=== PATIENT | female | born 2000 | race Caucasian/White ===

== ENCOUNTER 2019-12-21 09:12 | Inpatient (IN) | payer MEDICAID ==
[~2019-12-21] VITALS: Ht 165.1 cm; Wt 96.4 kg
[2019-12-21] MEDS ORDERED: PRENAVITE1 TAB PO (20:58)
[2019-12-21] MEDS ORDERED: FERROUS GLUCON324 MG PO (20:58)
[2019-12-21 21:08] LABS: HEMATOCRIT 35.5 % (36.0-48.0); HEMOGLOBIN 11.3 g/dL (12-16); MCHC 31.8 g/dL (31.0-37.0); MCV 88.1 fL (80.0-100.0); RBC 4.03 10x6/uL (4.00-5.40); RDW 14.1 % (11.5-14.5); WBC 13.3 10x3/uL (4.8-10.8)
[2019-12-21 21:21] LABS: UDS - AMPHET NEGATIVE QUAL (NEGATIVE); UDS - BARB NEGATIVE QUAL (NEGATIVE); UDS - BENZO NEGATIVE QUAL (NEGATIVE); UDS - COCAINE NEGATIVE QUAL (NEGATIVE); UDS - OPIATE NEGATIVE QUAL (NEGATIVE); UDS - PCP NEGATIVE QUAL (NEGATIVE); UDS - THC POSITIVE QUAL (NEGATIVE)
[2019-12-21 21:34] VITALS: BP 127/64; Ht 165.1 cm; Wt 96.4 kg
--- NOTE | 2019-12-22 23:50 | NUR ---
REPORT CALLED BY FLORIN BURNHAM
--- NOTE | 2019-12-22 23:58 | NUR ---
RECEIVED PT TO ROOM 1221. PT DELIVERED A LITTLE GIRL AT 2032. SHE AMBULATED TO 1221 FROM L&D. SHE HAS HER SO WITH HER. SHE HAS NKDA. SHE HAS A LEFT FOREARM SL. SHE HAS A RIGHT MEDIAL LATERAL EPISIOTOMY. HER FUNDUS IS FIRM 2 BELOW. SHE HAS SM TO MOD BLEEDING.
--- NOTE | 2019-12-23 00:20 | NUR ---
PT OUT OF BED TO VOID.
--- NOTE | 2019-12-23 02:00 | NUR ---
PT TRYING TO REST. PT HAD PAIN RATED AN 8 EARLIER AND PAIN MED GIVEN.
[2019-12-23 02:08] VITALS: BP 109/66
--- NOTE | 2019-12-23 04:00 | NUR ---
PT AND SO SLEEPING. NO C/O NO NEEDS
--- NOTE | 2019-12-23 05:04 | NUR ---
PT UP TO VOID. NO C/O AT THIS TIME.
--- NOTE | 2019-12-23 05:23 | NUR ---
PT C/0 PAIN RATED A 4-5. MOTRIN 600 MG GIVEN PO. PT HAS A HARD TIME GETTING OUT OF BED DUE TO PAIN FROM EPISIOTOMY SITE. SO IN ROOM IS VERY HELPFUL.
[2019-12-23 06:10] LABS: RAPID PLASMA REAGIN Non Reactive (Non Reactive)
[2019-12-23 07:00] VITALS: BP 107/69
--- NOTE | 2019-12-23 07:47 | NUR ---
REPORT GIVEN TO FLORIN FELICIANO
[2019-12-23 08:21] LABS: HEMATOCRIT 31.9 % (36.0-48.0); HEMOGLOBIN 10.3 g/dL (12-16); MCH 28.2 pg (26.0-34.0); MCHC 32.3 g/dL (31.0-37.0); MCV 87.4 fL (80.0-100.0); MEAN PLATELET VOLUME 10.7 fL (7.4-10.4); PLATELET COUNT 210 10x3/uL (130-400); RBC 3.65 10x6/uL (4.00-5.40); RDW 14.1 % (11.5-14.5); WBC 20.7 10x3/uL (4.8-10.8)
--- NOTE | 2019-12-23 11:15 | NUR ---
0700 REPORT RECEIVED FROM OUTGOING NURSE AWAKE ALERT IN BED VOICES NO COMPLAINTS ASSESSMENT COMPLETE LOCHIA MEDIUM FUNDUS FIRM BELOW UMBILICUS
--- NOTE | 2019-12-23 11:18 | NUR ---
0800 REQUESTING HYGING SUPPLIES SHAMPOO AND BODY WASH, DEODORANT, TOOTH BRUSH AND TOOTH PASTE, AND TALC PROVIDED
[2019-12-23 11:19] LABS: LYMPHOCYTES 10 % (15-50); MONOCYTES 7 % (2-11); NEUTROPHILS 79 % (40-80); PLATELET ESTIMATE NORMAL
[2019-12-23 11:20] LABS: ROULEAUX OCC
--- NOTE | 2019-12-23 11:20 | NUR ---
0903 C/O ACHY PAIN TO ABDOMIN 10/17 MOTABNER PROVIDED
--- NOTE | 2019-12-23 11:22 | NUR ---
0910 UP IN SHOWER WITH NO ASSIST LINENS CHANGED
--- NOTE | 2019-12-23 11:22 | NUR ---
0945 DR ASHLEY AT BEDSIDE UPDATING PT REFUSED NICODERM PATCH
--- NOTE | 2019-12-23 11:24 | NUR ---
1020 UP IN ROOM DRESSED SPOUSE REMAINS AT BEDSIDE
--- NOTE | 2019-12-23 11:46 | NUR ---
0292 DAD SITTING IN CHAIR HOLDING BABY PATIENT IN BATHROOM
--- NOTE | 2019-12-23 16:48 | MORECARE ---
CASE MANAGEMENT DISCHARGE SUMMARY PATIENT: BEVERLY BISWAS UNIT: [id number] ADM DATE: 12/21/19 AGE: 19 : [birth year] SEX: F ROOM/BED: D.1221 AUTHOR: POLLY CARRANZA PHYSICIAN: REFERRING PHYSICIAN: CRISTOBAL ASHLEY MD DATE OF SERVICE: 12/23/19 Discharge Plan Patient Name: BEVERLY BISWAS Facility: [facility]:[place] : 2000 Planned Disposition: Home Anticipated Discharge Date: 12/24/19 Discharge Date: Expected LOS: 3 Initial Reviewer: [email or web address] Initial Review Date: 12/21/2019 Generated: 12/23/19 5:47 pm Patient Name: BEVERLY BISWAS Page [id number] at 1648 All edits/amendments must be made on the electronic document DICTATION DATE: 12/23/191646 COSTUME MAKER: HARLEY 12/23/191646 RPT#: [id number] DC DATE: STATUS: ADM IN [facility] [place] [address] END OF REPORT
--- NOTE | 2019-12-23 17:55 | NUR ---
[address] CLOTHES ANXIOUS TO BE DISCHARGED. REMINDED PT THAT SHE HAS TO STAY 24 HOURS AFTER VAGINAL DELIVERY
--- NOTE | 2019-12-23 17:56 | NUR ---
1330 RESTING QUIETLY AFTER LUNCH
--- NOTE | 2019-12-23 17:57 | NUR ---
1430 CONTINUES TO REST
--- NOTE | 2019-12-23 17:59 | NUR ---
1542 DAD IN RECLINER BOTTLE FEEDING BABY WHILE MOTHER5 LOOKS ON
--- NOTE | 2019-12-23 18:03 | NUR ---
1650 SPOUSE COMES OUT AND ASKS WHEN THEY WILL BE DISCHARGED I EXPLAINED THAT MOTHER HAS TO STAY AT LEAST 24 HOURS WHICH WILL BE AT 2032 [facility]. HE SAID 'OK' AND WENT BACK TO HIS ROOM
--- NOTE | 2019-12-23 18:06 | NUR ---
1800 DINNER COMPLETE PATIENTS APPETITE GOOD AMBULATES TO TOILET INDEPENDENTLY WITHOUT COMPLICATIONS
--- NOTE | 2019-12-23 19:00 | NUR ---
REPORT GIVEN BY
[2019-12-23 19:28] VITALS: BP 118/67
--- NOTE | 2019-12-23 19:36 | NUR ---
PT C/O OF SOME PAIN IN HER MARIO AREA AND SOME CRAMPING. MOTRIN 600 MG GIVEN PO. SHE WILL CALL IF SHE HAS ANY NEEDS.
--- NOTE | 2019-12-23 19:51 | NUR ---
PT ASSESSMEMT COMPLETED AND CHARTED. PT IS SITTING UP IN THE CHAIR BREAST FEEDING. SHE IS UP AMBULATING IN HER ROOM. SHE IS VOIDING WELL. SHE STATES HER LOCHIA IS SMALL AT THIS TIME. SO IS WITH HER IN THE ROOM AND IS VERY HELPFUL. PT HAS A REGULAR DIET AND TOLERATING WELL. HEART SOUNDS WNL, LUNGS CLEAR, BOWEL SOUNDS HEARD. SHE WILL CALL FOR ANYTHING SHE NEEDS. CALL LIGHT IS WITHIN REACH.
--- NOTE | 2019-12-23 20:41 | NUR ---
PT CONT TO DO WELL WITHOUT C/O OR NEEDS. BABY JUST TAKEN TO MOM FROM THE NURSERY.
--- NOTE | 2019-12-23 21:18 | NUR ---
PT HOLDING BABY IN ROOM. NO C/0 AT THIS TIME.
--- NOTE | 2019-12-23 23:53 | NUR ---
PT IS RESTING QUIETLY WITHOUT WITHOUT C/O.
--- NOTE | 2019-12-24 02:00 | NUR ---
PT AND SO ARE AWAKE THE BABY WAS BROUGHT TO BACK TO THE ROOM AT THIS TIME. PT HAS NO C/O [place] NEEDS
--- NOTE | 2019-12-24 03:59 | NUR ---
PT IS SLEEPING. NO C/O OR NEEDS
--- NOTE | 2019-12-24 06:06 | NUR ---
PT IS SLEEPING AT THIS TIME. NO C/O OR NEEDS
--- NOTE | 2019-12-24 06:35 | NUR ---
PT C/O PAIN RATING IT A 4. SHE WAS GIVEN MOTRIN 600 MG PO. PT IS IN THE SHOWER NOW.
[2019-12-24 07:15] VITALS: BP 112/68
--- NOTE | 2019-12-24 07:15 | NUR ---
RECEIVED PT AMBULATORY IN ROOM. CARING FOR . PT TO BED FOR VS AND ASSESSMENT. VSS. HRRR WITHOUT AUDIBLE MURMUR. BBS CLEAR. BS X 4. ABDOMEN SOFT/NON-DISTENDED. FUNDUS FIRM AT U/2. RUBRA LOCHIA SMALL AMT. PT DENIES HEAVY BLEEDING OR PASSING CLOTS. PERINEUM WITHOUT EDEMA. NEG HOMANS' SIGN. PPP. MILD, NON-PITTING EDEMA NOTED TO BLE. PT STATES C/O ABDOMINAL CRAMPING OF "3" ON 0-10 PAIN SCALE. STATES PAIN RELIEVED BY PAIN MED. DECLINES MORE PAIN MEDICATION. SR UP X 2. CALL LIGHT IN REACH.
--- NOTE | 2019-12-24 08:13 | NUR ---
PT UP TO SHOWER. BED LINENS CHANGED. PT GIVEN TYLENOL 1000 MG PO ORDERED.
--- NOTE | 2019-12-24 08:44 | NUR ---
DR ASHLEY VISITS WITH PT.
--- NOTE | 2019-12-24 11:20 | NUR ---
DISCHARGE INSTRUCTIONS GIVEN TO PT. PT VERBALIZES UNDERSTANDING OF ALL INSTRUCTIONS. COPIES GIVEN TO PT. PT PREPARES FOR DISCHARGE. AWAITING [facility] VISIT.
--- NOTE | 2019-12-24 11:40 | NUR ---
PT READY FOR DISCHARGE. DISCHARGED WITH INFANT IN STABLE CONDITION VIA WHEELCHAIR TO PRIVATE VECHILE. PT AND INFANT JENN WELL.
--- NOTE | 2019-12-26 08:40 | MORECARE ---
CASE MANAGEMENT DISCHARGE SUMMARY PATIENT: BEVERLY BISWAS UNIT: [id number] ADM DATE: 12/21/19 AGE: 19 : [birth year] SEX: F ROOM/BED: D.1221 AUTHOR: POLLY CARRANZA PHYSICIAN: REFERRING PHYSICIAN: CRISTOBAL ASHLEY MD DATE OF SERVICE: 12/26/19 Discharge Plan Patient Name: BEVERLY BISWAS Facility: [facility]:[place] : 2000 Planned Disposition: Home Anticipated Discharge Date: 12/24/19 Discharge Date: 12/24/2019 Expected LOS: 3 Initial Reviewer: [email or web address] Initial Review Date: 12/21/2019 Generated: 12/26/19 9:39 am Last DP export: 12/23/19 3:48 p Patient Name: BEVERLY BISWAS Page [id number] at 0840 All edits/amendments must be made on the electronic document DICTATION DATE: 12/26/19 0839 SENIOR APPLICATIONS ENGINEER: HARLEY 12/26/19 0839 RPT#: [id number] DC DATE:12/24/19 STATUS: DIS IN [facility] [address] [place] [address] END OF REPORT
== END 2019-12-24 12:40 | disposition home or self-care (01) | DRG 807 ==
LOC: D.LD 09:12 → D.WS 20:02 → D.LD 20:02 → D.WS 12-22 23:57
PROVIDERS: Student in an Organized Health Care Education/Training Program; ADMIT Obstetrics & Gynecology; ATTEND Obstetrics & Gynecology
PROC: 10D07Z6 Extraction of Products of Conception, Vacuum, Via Natural or Artificial Opening (ICD-10-PCS; principal; 2019-12-22)
PROC: 0W8NXZZ Division of Female Perineum, External Approach (ICD-10-PCS; 2019-12-22)
DX: O36.8330 Maternal care for abnormalities of the fetal heart rate or rhythm, third trimester, not applicable or unspecified (principal); Z37.0 Single live birth; Z3A.40 40 weeks gestation of pregnancy